=== PATIENT | female | born 1950 | race Caucasian/White ===

== ENCOUNTER → 2019-03-25 | Outpatient (CLI) | payer OTHER ==
[~2019-03-25] MED LIST: ARTIFICIAL TEA1 EAC1 OP; ATRIPLA TABLET1 EACH PO; BACLOFEN 10MG T10 MG PO; CARAFATE 1 GM TA1 G1 PO; CEPACOL SORE T1 EAC7 MM; DIGOXIN250 MCG PO; GLUCAGEN1 MG IM; GRALISE300 MG PO; KLOR-CON 1010 MEQ PO; LASIX 40 MG TAB40 M2 PO; LIPITOR 20 MG T20 M1 PO; LOPERAMIDE 2 MG2 M1 PO; MIDODRINE HCL 55 M1 PO; NOVOLIN 70100 UNIT/5 IJ; PEPCID20 MG PO; PIOGLITAZONE15 MG; PRADAXA150 MG PO; ROBITUSSIN DM118 ML PO; SENNA8.6 MG PO; TYLENOL325 MG PO; WAL-ZYR10 M1 PO; ZANTAC 150MG T150 MG PO
--- NOTE | 2019-03-25 16:08 | 2DMMODE ---
[facility] [address] [place] [address] 2 D/M-MODE ECHOCARDIOGRAM Name: DUKE BROWN Room #: REG CL Brayan#: [id number] Admission: 03/25/19 Attend Phys: Manuel Ferguson Discharge: Date of : 48 Report #: [id number] THIS REPORT FOR: //name// APPROVED REPORT Study performed: 03/25/2019 15:04:30 EXAM: Comprehensive 2D, Doppler, and color-flow Echocardiogram Patient Location: Out-Patient Room #: Echo lab 2 Status: routine BSA: 1.93 HR: 83 bpm Rhythm: Atrial Fibrillation Other Information Study Quality: Good Indications Pre-Op Atrial Fibrillation Hypertension/HDD 2D Dimensions IVSd: 12.47 (7-11mm) LVOT Diam: 18.70 (18-24mm) LVDd: 31.92 mm PWd: 12.13 (7-11mm) Ascending Ao: 28.30 (22-36mm) LVDs: 22.10 (25-40mm) Aortic Root: 28.02 mm IVC: 15.00 mm Volumes Left Atrial Volume (Systole) Single Plane 4CH: 44.64 mL Single Plane 2CH: 58.80 mL LA ESV Index: 30.00 mL/m2 Aortic Valve LVOT Max P.89 mmHg LVOT Max V: 0.99 m/s Pulmonary Valve PV Peak Shakeel.: 1.69 m/s PV Peak Gr.: 11.42 mmHg Tricuspid Valve TR Peak Shakeel.: 2.52 m/s [facility] [address] [place] [address] 2 D/M-MODE ECHOCARDIOGRAM Name: DUKE BROWN Room #: REG ADONIS Brayan#: [id number] Admission: 03/25/19 Attend Phys: Manuel Ferguson Discharge: Date of : 48 Report #: [id number] TR Peak Gr.: 25.47 mmHg PA Pressure: 30.00 mmHg Left Ventricle The left ventricle is normal size. There is normal LV segmental wall motion. Mild concentric left ventricular hypertrophy. The left ventricular systolic function is normal. The left ventricular ejection fraction is within the normal range. LVEF is 60%. This study is not technically sufficient to allow evaluation of the LV diastolic function due to atrial fibrillation. Right Ventricle The right ventricle is normal size. The right ventricular systolic function is normal. Atria The left atrium size is normal. Right atrium is at the upper limits of normal. Aortic Valve The aortic valve is normal in structure. Aortic valve is calcified. Trace to mild aortic regurgitation. There is no aortic valvular stenosis. Mitral Valve The mitral valve is normal in structure. There is no mitral valve regurgitation noted. No evidence of mitral valve stenosis. Tricuspid Valve The tricuspid valve is normal in structure. There is trace tricuspid regurgitation. The right atrial pressure is estimated at mmHg. There is mild pulmonary hypertension. Pulmonic Valve The pulmonary valve is normal in structure. Trace pulmonic regurgitation. Great Vessels The aortic root is normal in size. IVC is normal in size and collapses >50% with inspiration. Pericardium There is no pericardial effusion. <Conclusion> The left ventricle is normal size. [facility] [address] [place] [address] 2 D/M-MODE ECHOCARDIOGRAM Name: DUKE BROWN Room #: REG CL [facility].#: [id number] Admission: 03/25/19 Attend Phys: Manuel Ferguson Discharge: Date of : 48 Report #: [id number] LVEF is 60%. The aortic valve is normal in structure. Aortic valve is calcified. Trace to mild aortic regurgitation. The mitral valve is normal in structure. The tricuspid valve is normal in structure. There is trace tricuspid regurgitation. The right atrial pressure is estimated at mmHg. There is mild pulmonary hypertension. There is no pericardial effusion. <ELECTRONICALLY SIGNED> By: Manuel Flaherty MD 03/25/19 1608 1608 07 Manuel Flaherty MD /INF
== END ==
LOC: CV 14:52
DX: Z01.810 Encounter for preprocedural cardiovascular examination (principal); I35.1 Nonrheumatic aortic (valve) insufficiency; I48.91 Unspecified atrial fibrillation; I27.20 Pulmonary hypertension, unspecified

== ENCOUNTER 2019-08-03 16:24 | Emergency (ER) | payer OTHER ==
[~2019-08-03] VITALS: Ht 162.6 cm; Wt 102.1 kg
[~2019-08-03 16:24] MED LIST changes: +DORYX MPC120 MG PO
[2019-08-03 16:27] VITALS: BP 157/82
[2019-08-03] MEDS ORDERED: FARXIGA5 MG PO (18:55)
[2019-08-03] MEDS ORDERED: VITAMIN D32000 UNI2 PO (18:56)
[2019-08-03] MEDS ORDERED: BACLOFEN 10MG T10 MG PO (18:57)
[2019-08-03] MEDS ORDERED: ATRIPLA TABLET1 EACH PO (18:58)
[2019-08-03] MEDS ORDERED: TYLENOL WITH CO1 TA1 PO (19:00)
== END 2019-08-03 21:19 | disposition home or self-care (01) ==
LOC: ER 16:24
DX: E11.40 Type 2 diabetes mellitus with diabetic neuropathy, unspecified (principal); R60.0 Localized edema; B20 Human immunodeficiency virus [HIV] disease; Z90.49 Acquired absence of other specified parts of digestive tract

== ENCOUNTER 2019-08-13 15:01 | Inpatient (IN) | payer OTHER ==
[~2019-08-13] VITALS: Ht 165.1 cm; Wt 56.3 kg
--- NOTE | ~2019-08-13 | HC ---
[facility] [place] [address] CONSULTATION Name: DUKE BROWN Room #: 355-P ADM IN M.R.#: [id number] Admission: 08/13/19 Attend Phys: Linda Mancilla MD Discharge: Date of : 48 Report #: [id number] THIS REPORT FOR: cc: Linda Mancilla MD,Gerber Porras MD, MD ~ CC: Linda Mancilla DATE OF SERVICE: 08/14/2019 WOUND CARE CONSULTATION PERSONAL PHYSICIAN: Dr. Mancilla. CHIEF COMPLAINT: Sacral ulcer. HISTORY OF PRESENT ILLNESS: This is a 68-year-old white female who was admitted from a senior care for evaluation of hypotension and possible sepsis. The patient has now been admitted for IV antibiotics. We were asked to evaluate the patient for a chronic ulcer on her right parasacral region. The patient himself is extremely demented and unable to give any history. According to the records, the patient's mentation is at her baseline. It is unclear whether the patient ever had any other ulcerations or how long this current ulceration has been present. There are no family members in the room at this time. PAST MEDICAL HISTORY: Per old records is significant for diabetes, previous DVTs and history of HIV. The patient has had a [place] filter placed as well. CURRENT MEDICATIONS: Multiple, I have reviewed the patient's medication list. DRUG ALLERGIES: None. SOCIAL HISTORY: The patient resides in a senior care facility. FAMILY HISTORY AND REVIEW OF SYSTEMS: Unobtainable because of the patient's mentation and dementia. PHYSICAL EXAMINATION: VITAL SIGNS: Temperature 36.9, pulse 94, respirations 20, BP 92/47. GENERAL: This is an awake, demented white female who is only oriented to person. HEENT: Normocephalic, atraumatic. Mucous membranes are dry. Pupils are round. Sclerae white. NECK: Supple, nontender. LUNGS: Clear. [facility] [address] [place] [address] [facility] Room #: 355-[facility] IN ..#: [id number] Admission: 08/13/19 Attend Phys: Linda Mancilla MD Discharge: Date of : 48 Report #: [id number] HEART: Regular. ABDOMEN: Obese, soft, nontender. EXTREMITIES: The patient moves all extremities without difficulty. Bilateral heels are intact. Distal pulses 1+. Evaluation of the right parasacral region reveals a dark eschar which is somewhat tender to palpation and somewhat fluctuant. Periwound is mildly erythematous and warm. No tunneling or undermining. No other associated signs of pressure ulcers are seen. NEUROLOGIC: Once again, the patient is demented. LABORATORY DATA: White count 10.0, hemoglobin 12.8, BUN 11, creatinine 0.6. Chest x-ray shows no acute abnormality. IMPRESSION: 1. Right parasacral unstageable decubitus ulcer present on admission. 2. Dementia. 3. Generalized debility. 4. Hypotension. PLAN: At this time, the patient will be placed on low air loss mattress and have her turned every [address] the patient in a heel protection given her multiple comorbidities and inactivity. We will consult General Surgery____ has been notified for surgical debridement of the parasacral ulceration. We will start the patient on Dakin's moist dressings twice daily to the area. We will check a prealbumin on this patient and attempt to maximize the patient's oral protein supplementation for healing. At this time, I do not think the patient is a candidate for physical or occupational therapy. We will continue all other current medications and continue to follow the patient. By: 162 20 Gerber Clancy MD /ayden
[~2019-08-13 15:01] MED LIST changes: +FARXIGA5 MG PO; +TYLENOL WITH CO1 TA1 PO; +VITAMIN D32000 UNI2 PO
[2019-08-13 15:02] VITALS: BP 92/45
[2019-08-13] MEDS ORDERED: FARXIGA5 MG PO (16:16)
[2019-08-13 16:19] LABS: ABSOLUTE NEUTROPHILS 6.9 thou/uL (1.4-8.2); BASOPHILS 0.8 % (0.0-2.0); EOSINOPHILS 3.6 % (0.0-3.0); HEMATOCRIT 40.1 % (37.0-47.0); HEMOGLOBIN 12.8 gm/dL (12.0-15.0); LYMPHOCYTES 17.4 % (24.0-44.0); MCH 29.8 pg (26.0-34.0); MCHC 31.8 g/dL (28.0-37.0); MCV 93.5 fL (80.0-100.0); PLATELET COUNT 387 thou/uL (150-400); POLYS 69.2 % (36.0-66.0); RBC 4.29 mil/uL (4.20-5.00); RDW 14.7 % (10.5-14.5)
[2019-08-13 16:20] LABS: URINE BILIRUBIN NEGATIVE (Negative); URINE BLOOD 3+ (Negative); URINE CLARITY SL CLOUDY; URINE COLOR YELLOW; URINE GLUCOSE-RANDOM* 2+ (Negative); URINE KETONES NEGATIVE (Negative); URINE NITRITE-REFLEX NEGATIVE (Negative); URINE PROTEIN (DIPSTICK) TRACE (Negative); URINE SPECIFIC GRAVITY 1.015 (1.005-1.035)
[2019-08-13] MEDS ORDERED: TYLENOL WITH CO1 TA1 PO (16:20)
[2019-08-13 16:23] LABS: URINE LEUKOCYTES-REFLEX 3+ (Negative)
[2019-08-13] MEDS ORDERED: NYSTATIN 100,0015 G1 TOP (16:25)
[2019-08-13 16:27] LABS: CALCIUM 9.7 mg/dL (8.5-10.1); CREATININE 0.6 mg/dL (0.6-1.0); MAGNESIUM 1.8 mg/dL (1.8-2.4); POTASSIUM 3.8 mmol/L (3.5-5.1)
[2019-08-13 16:32] LABS: BACTERIA-REFLEX 1-9 Few /HPF (None Seen); CASTS None Seen /LPF (None Seen); CRYSTALS None Seen /LPF (None Seen); SQUAMOUS 0-3 Few /LPF (0-3); URINE WBC-REFLEX >25 Many /HPF (0-5)
--- NOTE | 2019-08-13 16:32 | EKG ---
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
[2019-08-13 18:56] VITALS: BP 92/54
[2019-08-13 19:51] VITALS: BP 96/51
[2019-08-13 20:19] VITALS: BP 97/60
[2019-08-13 23:58] VITALS: BP 105/58
--- NOTE | 2019-08-14 01:43 | NUR ---
Admission history and assessments completed. Careplan initiated. Decubitus ulcer Left buttocks, photographed and documented. IVfluids infusing.
[2019-08-14 04:12] VITALS: BP 112/65
--- NOTE | 2019-08-14 06:20 | NUR ---
Falls pre admission. Known right arm fracture, patient refuses to wear immobilizer. Oxyir given for pain with some relief. Fall precautions in place.
[2019-08-14 08:00] VITALS: BP 106/69
--- NOTE | 2019-08-14 08:14 | NUR ---
0700 received report from Natalie morris cares on this patient.
[2019-08-14 13:30] VITALS: BP 121/71
[2019-08-14 15:53] VITALS: BP 92/47
--- NOTE | 2019-08-14 16:25 | NUR ---
INITIAL ASSESSMENT: SW reviewed chart and spoke with nursing and attending physician. Pt was admitted from [facility] due to UTI/Hypotension. Pt wih hx of HIV and dementia. Pt with postive blood cultures. No weekend discharge planned. SW to update facility on Saturday. BECKY is following to assist as needed with discharge planning.
[2019-08-14 19:19] VITALS: BP 77/50
--- NOTE | 2019-08-14 19:32 | NUR ---
Patient is able to communicate very well if you give her the time. Her speech is garbled but she can communicate her needs. She holds her rt arm close to her chest d/t previous fx. She does not want you any where near the rt side of her body. 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 The topete she arrived with from the outside facility had to be replaced today due to leaking. Her HR increases to 120's 150's with movement d/t the anxiety of moving and pain it returns to baseline shortly after movement is complete. Breathing and relaxation techniques gone over with the patient when she is moved. She was educated on the need for being turned in bed.
[2019-08-14 22:31] VITALS: BP 108/58
[2019-08-15 03:49] VITALS: BP 96/61
--- NOTE | 2019-08-15 03:55 | NUR ---
ASSUMED CARE OF PATIENT AT 1900. VSS, AFEBRILE. DIFFICULT TO UNDERSTAND, BUT IS ABLE TO COMMUNICATE. APPEARS TO BE VERY ANXIOUS ABOUT RIGHT ARM. REFUSES TURNS. EDUCATED ABOUT PRESSURE ULCERS ALREADY ON BUTTOCKS. SURGERY IN TO SEE PATIENT. PLANS FOR POSSIBLE DEBRIDEMENT SATURDAY. WILL CONTINUE TO MONITOR.
[2019-08-15 07:07] VITALS: BP 102/64
--- NOTE | 2019-08-15 16:27 | NUR ---
ASSUMED CARE AT 0700, PT ALERT AND ORIENTED X3. PT COMPLAINS OF GENERALIZED PAIN ESPECIALLY ON THE RIGHT. RIGHT ARM SEEMS DISLOCATED, ORTHO AWARE AND ORDER SHOULDER IMMOLIZER, PT REFUSE IMMOBILIZER. PT TUEN Q2, CALL LIGHT IN REACH AND BED AT LOWEST LEVL WITH ALARM ON. WILL CONTINUE TO MONITOR
[2019-08-15 17:00] VITALS: BP 111/62
[2019-08-15 19:14] VITALS: BP 93/58
[2019-08-16 04:00] VITALS: BP 117/77
[2019-08-16 06:56] VITALS: BP 88/51
[2019-08-16 15:42] VITALS: BP 100/58
--- NOTE | 2019-08-16 17:31 | NUR ---
patient has been more tearful today and has not talked as much as she has the prior day. She just shakes her head and looks away. She had a new IV placed in her rt hand this am by Tierney GILES. Dressing change to her coccyx was also done by Tierney GILES. She was incontinent of a very lg amount of BM x1 today. Requested pain medication every 4 hours and once when family was here wanted something for pain in between the 4 hrs. She has a sling to the rt arm I have had to redo the velcro strap around the neck twice today she kept saying "it hurts" I applied a wash rag between the strap and her neck for comfort. At this time there was no sign of skin irritation. She did not want to feed herself supper and was very withdrawn at supper although she ate well just wanted to be fed.
[2019-08-16 20:10] VITALS: BP 107/62
[2019-08-17 04:00] VITALS: BP 101/60
[2019-08-17 05:30] LABS: HEMOGLOBIN 11.3 gm/dL (12.0-15.0); MCH 29.3 pg (26.0-34.0); MCHC 31.4 g/dL (28.0-37.0); MCV 93.4 fL (80.0-100.0); RBC 3.86 mil/uL (4.20-5.00); RDW 14.6 % (10.5-14.5); WBC 8.7 thou/uL (4.0-11.0)
[2019-08-17 06:02] LABS: CREATININE 0.5 mg/dL (0.6-1.0); POTASSIUM 3.8 mmol/L (3.5-5.1)
--- NOTE | 2019-08-17 06:14 | NUR ---
PT MAKING POOR PROGRESS TOWARDS GOALS. NOTED HX OF EXPRESSIVE APHASIA R/T. PT HAS NOT SPOKEN ANY WORDS TO THIS RN NOR THE DISK OPERATOR. DID NOD HER HEAD UP/DOWN AND LEFT/RIGHT FOR YES OR NO. THOUGH PT ONLY RESPONDED TO BASIC QUESTIONS SUCH "ARE YOU THIRSTY" OR "ARE YOU COLD?"
--- NOTE | 2019-08-17 07:44 | NUR ---
assumed care at 0700, pt and oriented, follows commands. seems more withdrawnn than usual. Assessment completed. pt educated on going to get debridement of right buttocks wound today. complains of right arm and leg pain. Has a sling on the right arm. pt denies any needs at the moment, call light in reach and bed at lowest level. Will continue to monitor.
[2019-08-17 07:56] VITALS: BP 107/70
--- NOTE | 2019-08-17 12:02 | NUR ---
1050 PT TAKEN DOWN TO OR
--- NOTE | 2019-08-17 14:31 | NUR ---
DISCHARGE PLANNING. PATIENT ADMITTED FROM [facility]. PLAN IS FOR PATIENT TO RETURN TO [facility] ONCE MEDICALLY READY. PATIENT CLINICAL INFORMATION FAXED TO [facility], VERIFIED RECEIVED. FOLLOWING.
--- NOTE | 2019-08-17 15:12 | NUR ---
BECKY reviewed chart and spoke with nursing. Pt to have surgical debridement of wounds today. financial planner to fax clinical updates to [facility] for review. BECKY is following to assist as needed with discharge planning.
[2019-08-17 16:25] VITALS: BP 94/54
--- NOTE | 2019-08-17 17:11 | NUR ---
1540 pt back from surgery. right buttocks debridement done, dressing, intact, clean and dry. pt alert and oriented X3. DENIES ANY PAIN. Call light and table in reach. bed alarm on
[2019-08-17 19:51] VITALS: BP 99/50
[2019-08-18 03:01] VITALS: BP 94/56
[2019-08-18 07:52] VITALS: BP 115/56
--- NOTE | 2019-08-18 07:58 | NUR ---
0705 Report received from Vipul GILES patient laying quietly in bed she has no complaints or concerns at this time. Call light within reach.
--- NOTE | 2019-08-18 08:02 | NUR ---
PT MAKING POOR PROGRESS TOWARDS GOALS. NO VERBAL RESPONSE FROM PT BUT SHE DOES MAKE EYE CONTACT AND TURN TOWARDS THE PERSON SPEAKING. DOES APPEAR TO TO HER HEAD UP/DOWN (YES) AND LEFT/RIGHT (NO) APPROPRIATELY. ABLE TO TAKE MEDS IN PUDDING WITHOUT OBSERVABLE DIFFICULTY.
[2019-08-18] MEDS ORDERED: AUGMENTIN 500-1 EACH PO (10:20)
[2019-08-18] MEDS ORDERED: MOBIC7.5 M1 PO (10:21)
[2019-08-18] MEDS ORDERED: OXYCODONE HCL 55 MG PO (10:22)
--- NOTE | 2019-08-18 14:26 | NUR ---
Report called to Andreia LANZA at [facility].
--- NOTE | 2019-08-18 15:43 | NUR ---
DISCHARGE NOTE: SW reviewed chart and spoke with nursing. Discharge orders/summary finalized today for pt to return to [facility]. community planner coordinated and notified pt's family. No additional SW needs identified at this time, but is available to assist should needs arise.
[2019-08-18 16:13] VITALS: BP 89/57
[2019-08-18 16:15] VITALS: BP 79/47
--- NOTE | 2019-08-19 17:07 | PATH ---
[facility] [address] [place] [address] PATHOLOGY RPT PROCEDURE Name: DUKE BROWN Room #: 355-P DIS IN M.R.#: [id number] Admission: 08/13/19 Date of : 48 Discharge: 08/18/19 Report #: [id number] Path Case #: [id number] L[facility] Accession Number: [id number] . 01 Material submitted: . sacrum - LEFT SACRAL SKIN AND TISSUE. Modifiers: left . 01 Clinical history: . Left sacral decubitus ulcer . 02 Diagnosis: Left sacral skin and tissue, debridement: - Skin and subcutaneous tissue showing ulceration along with marked acute inflammation, gangrenous necrosis as well as fibrinoid degeneration, consistent with debridement tissue. . (IUV:mml; 08/19/2019) QLM 08/19/2019 1311 Local . 02 Electronically signed: . Naomi Gonzalez MD, Pathologist NPI- [id number] . 01 Gross description: . The specimen is received in formalin, labeled "Duke Brown, left sacral skin and soft tissue" and consists of an ulcerated pink-sal segment of skin measuring 6.3 x 5.1 cm excised to a depth of 4.3 cm. Design Engineering Manager sections are submitted in A1. (SDY; 08/18/2019) SYU/SYU 08/18/2019 1618 Local . 02 Pathologist provided ICD-10: L89.159 . 02 CPT . 744772 Specimen Comment: A courtesy copy of this report has been sent to [phone], [phone] Specimen Comment: [id number] Specimen Comment: Report sent to / DR HARPER Performed at: 01 [place] [id number] [address] [id number] MD Aldo Brush MD Phone: [phone] Performed at: [address] [id number] [address] [address] PATHOLOGY RPT PROCEDURE Name: DUKE BROWN Room #: 355-P DIS IN M.R.#: [id number] Admission: 08/13/19 Date of : 48 Discharge: 08/18/19 Report #: [id number] Path Case #: [id number] MD Naomi Gonzalez MD Phone: [phone]
== END 2019-08-18 17:00 | DRG 853 ==
LOC: ER 15:01 → 3W 17:47 → EROBS 17:47 → 3W 19:50
PROVIDERS: Emergency Medicine; Internal Medicine; ADMIT Internal Medicine
PROC: 0QB10ZZ Excision of Sacrum, Open Approach (ICD-10-PCS; principal; 2019-08-17)
DX: A41.9 Sepsis, unspecified organism (principal); G92 Toxic encephalopathy; S42.291A Other displaced fracture of upper end of right humerus, initial encounter for closed fracture; N39.0 Urinary tract infection, site not specified; I69.351 Hemiplegia and hemiparesis following cerebral infarction affecting right dominant side; I48.21 Permanent atrial fibrillation; L89.150 Pressure ulcer of sacral region, unstageable; E66.9 Obesity, unspecified; F03.90 Unspecified dementia, unspecified severity, without behavioral disturbance, psychotic disturbance, mood disturbance, and anxiety; E11.40 Type 2 diabetes mellitus with diabetic neuropathy, unspecified; I25.10 Atherosclerotic heart disease of native coronary artery without angina pectoris; E78.5 Hyperlipidemia, unspecified; I10 Essential (primary) hypertension; F32.9 Major depressive disorder, single episode, unspecified; K21.9 Gastro-esophageal reflux disease without esophagitis; L29.9 Pruritus, unspecified; X58.XXXA Exposure to other specified factors, initial encounter; Y93.89 Activity, other specified; Y92.89 Other specified places as the place of occurrence of the external cause; Z86.718 Personal history of other venous thrombosis and embolism; Z79.01 Long term (current) use of anticoagulants; Z68.20 Body mass index [BMI] 20.0-20.9, adult; Y99.8 Other external cause status; Z90.49 Acquired absence of other specified parts of digestive tract; Z79.899 Other long term (current) drug therapy
CPT/HCPCS: 10879; 50010; 50101; 50386; 50403; 57119; 57120; 57192; 62110; 62900; 70005

== ENCOUNTER 2019-08-23 17:32 | Inpatient (IN) | payer OTHER ==
[~2019-08-23] VITALS: Ht 165.1 cm; Wt 83.2 kg
--- NOTE | ~2019-08-23 | EMS ---
[place] [id number] EMS Patient Care Report Name: DUKE BROWN Room #: 214-P ADM IN M.R.#: [id number] Admission: 08/23/19 Attend Phys: Linda Mancilla MD Discharge: Date of : 48 Report #: [id number] THIS REPORT FOR: //name// Report Transmitted: 08/23/2019 17:18 EMS Care Summary [place], [place]/[facility] Incident [id number] @ 08/23/2019 17:04 Incident Location [address] Patient DUKE BROWN Female, 68 Years 1950 Patient Address [address] [place] [address] Patient History Other,Urinary Tract Infection (UTI),Atrial Fibrillation,Neuropathy,Sepsis,Hypotension,Type 2 Diabetes, Patient Allergies No known allergies, Patient Medications Atorvastatin, Loperamide, Benztropine, Famotidine, Digoxin, Midodrine, Gabapentin, Acetaminophen, Insulin, Cholecalciferol, Glucagon, Meloxicam, Dextromethorphan, Baclofen, Guaifenesin, Hydrocodone, Pioglitazone Hydrochloride, Chief Complaint Altered Mental Status Disposition Transported No Lights/[place] Reason [place] [address] EMS Patient Care Report Name: DUKE BROWN Room #: 214-P ADM IN Brayan#: [id number] Admission: 08/23/19 Attend Phys: Linda Mancilla MD Discharge: Date of : 48 Report #: [id number] Dispatched to residential with 68 year old female whose family was complaining of altered mental status. Upon arrival, patient was alert and oriented x2 and responding appropriately. Family stated patient was difficult to arouse and they felt like she wasn't acting like her normal self. Nurse stated patient was acting normally and family attempted to wake her up shortly after falling asleep. Patient complained of pain in her right arm from a previous humeral fracture. Patient was transferred, secured onto cot, and loaded into the ambulance. An ALS assessment was performed and vitals were monitored. Patient had right sided paralysis and some aphasia from a previous stroke. Patient also had a history of diabetes and sugar was 121. Patient's blood pressures were soft, but nurse stated the low pressure was normal for her and she was on medication to increase pressure. Patient stated she only had pain in her shoulder and chronic knee pain. Patient was reassessed and vitals were monitored en route to [place]. Upon arrival, patient was taken in on stretcher, moved to hospital bed, bed rails were raised, and patient care was transferred to the receiving nurse. Initial Vitals @17:15P: 96,R: 14,BP: 74/59,GCS: 15,SpO2: 97,Revised Trauma: 10, @17:09P: 92,R: 12,BP: 89/60,Pain: 6/10,GCS: 15,Glucose: 121,CO: 0,SpO2: 96,Revised Trauma: 11,DE Suspected: false Assessments @17:09MENTAL:Event Oriented,Person Oriented,SKIN:HEENT:Neck/Airway: Other,Head/Face: No Abnormalities,LUNG SOUNDS:General: No Abnormalities,ABDOMEN:General: No Abnormalities,PELVIS//GI:Pelvis GUOther,EXTREMITIES:Right Leg: Paralysis,Right Arm: Other,Right Arm: Paralysis,Capillary Refill: Left Upper: < 2 Sec,Left Arm: No Abnormalities,Left Leg: No Abnormalities,PULSE:Radial: 2+ Normal,NEURO:Weakness Right-Sided,Other,@17:19MENTAL:Person Oriented,Event Oriented,SKIN:No Abnormalities,HEENT:Head/Face: No Abnormalities,Eyes: No Abnormalities,LUNG SOUNDS:ABDOMEN:PELVIS//GI:EXTREMITIES:PULSE:NEURO: Impression Altered Mental Status Procedures @17:09ALS AssessmentResponse: UnchangedSucceeded Timeline 17:02,Call Received 17:02,Dispatch Notified 17:04,Dispatched 17:04,En Route 17:08,On Scene 17:08,At Patient [address] [place] [address] EMS [facility] Care [facility] Room #: 214-P ADM IN M.R.#: [id number] Admission: 08/23/19 Attend Phys: Linda Mancilla MD Discharge: Date of : 48 Report #: [id number] 17:09,ALS Assessment,Response: UnchangedSucceeded, 17:09,BP: 89/60 M,PULSE: 92,RR: 12 R,SPO2: 96 Ox,ETCO2: ,B,PAIN: 6,GCS: 15, 17:15,BP: 74/59 M,PULSE: 96,RR: 14 R,SPO2: 97 Ox,ETCO2: ,BG: ,PAIN: ,GCS: 15, 17:17,Depart Scene 17:28,At Destination 17:59,Call Closed Disclaimer v1.1 Copyright 2020 [employer] This EMS Care Summary contains data elements from the applicable legal record (which may be displayed differently). It is designed to provide pertinent information for the following purposes: continuity of care, clinical quality, and state data reporting. The complete legal record is available to ED staff and administrators of the receiving hospital in [employer]'s Patient Tracker. All data is provided "as is."
[~2019-08-23 17:32] MED LIST changes: +AUGMENTIN 500-1 EACH PO; +MOBIC7.5 M1 PO; -NOVOLIN 70100 UNIT/5 IJ; +NOVOLIN 70100 UNIT/5 SUBQ; +NYSTATIN 100,0015 G1 TOP; +OXYCODONE HCL 55 MG PO
[2019-08-23 18:07] LABS: ABSOLUTE NEUTROPHILS 7.4 thou/uL (1.4-8.2); BASOPHILS 0.8 % (0.0-2.0); EOSINOPHILS 3.1 % (0.0-3.0); HEMATOCRIT 38.2 % (37.0-47.0); HEMOGLOBIN 12.3 gm/dL (12.0-15.0); LYMPHOCYTES 14.2 % (24.0-44.0); MCH 29.8 pg (26.0-34.0); MCHC 32.1 g/dL (28.0-37.0); MCV 92.9 fL (80.0-100.0); MONOCYTES 7.8 % (1.0-8.0); PLATELET COUNT 504 thou/uL (150-400); POLYS 74.1 % (36.0-66.0); RBC 4.12 mil/uL (4.20-5.00); RDW 14.6 % (10.5-14.5); WBC 9.9 thou/uL (4.0-11.0)
[2019-08-23 18:11] VITALS: BP 101/85
[2019-08-23 18:19] LABS: ANION GAP 10 mmol/L (7-16); BUN 16 mg/dL (7-18); CALCIUM 10.2 mg/dL (8.5-10.1); CHLORIDE 104 mmol/L (98-107); CO2 28 mmol/L (21-32); CREATININE 0.5 mg/dL (0.6-1.0); GLUCOSE 114 mg/dL (74-106); POTASSIUM 3.4 mmol/L (3.5-5.1); SODIUM 142 mmol/L (136-145)
[2019-08-23 18:27] LABS: ALBUMIN 2.5 g/dL (3.4-5.0); DIRECT BILIRUBIN < 0.1 mg/dL (<0.1-0.2); SGOT 56 U/L (15-37); SGPT 43 U/L (30-65); TOTAL BILIRUBIN 0.3 mg/dL (<0.1-1.0); TOTAL PROTEIN 7.3 g/dL (6.4-8.2); TROPONIN-I 0.56 ng/mL (<0.06)
[2019-08-23] MEDS ORDERED: DULCOLAX STOOL100 M1 PO (19:14)
[2019-08-23 19:16] LABS: URINE BILIRUBIN NEGATIVE (Negative); URINE BLOOD 3+ (Negative); URINE CLARITY CLEAR; URINE COLOR YELLOW; URINE GLUCOSE-RANDOM* 1+ (Negative); URINE KETONES 1+ (Negative); URINE NITRITE-REFLEX NEGATIVE (Negative); URINE PROTEIN (DIPSTICK) 1+ (Negative); URINE SPECIFIC GRAVITY 1.025 (1.005-1.035); URINE UROBILINOGEN 0.2 E.U./dl (0.2-1.0)
[2019-08-23 19:17] LABS: URINE LEUKOCYTES-REFLEX 1+ (Negative)
[2019-08-23] MEDS ORDERED: ACID CONTROLLER20 MG PO (19:18)
[2019-08-23] MEDS ORDERED: VITAMIN C500 M1 PO (19:19)
[2019-08-23] MEDS ORDERED: NYSTATIN1 EAC5 TOP (19:22)
[2019-08-23 19:23] LABS: SQUAMOUS 0-3 Few /LPF (0-3); YEAST-REFLEX Present (None Seen)
[2019-08-23] MEDS ORDERED: BACITRACIN ZIN1 EAC1 TOP (19:23)
[2019-08-23 19:24] LABS: BACTERIA-REFLEX 1-9 Few /HPF (None Seen); CASTS None Seen /LPF (None Seen); CRYSTALS None Seen /LPF (None Seen); URINE WBC-REFLEX 6-15 Few /HPF (0-5)
[2019-08-23] MEDS ORDERED: DESITIN57 GM TOP (19:24)
[2019-08-23 22:10] VITALS: BP 101/47
[2019-08-23 22:36] VITALS: BP 82/49
[2019-08-23 23:53] VITALS: BP 75/46
[2019-08-24 04:45] VITALS: BP 94/68
[2019-08-24 07:30] VITALS: BP 88/64
--- NOTE | 2019-08-24 07:31 | NUR ---
PATIENT ARRIVED ON UNIT AROUND 2250. PT ON ROOM AIR. PT HAS EXPRESSIVE APHASIA AND ABLE TO ANSWER SIMPLE QUESTIONS WITH ONE WORD. PT IS ALERT TO SELF AND WILL FOLLOW DIRECTIONS. PT WINCES IN PAIN WHEN RIGHT SIDE IS TOUCHED. PT HAS RODRIGUEZ FOR INCONTINENCE. PT HAS LARGE OPEN WOUND ON COCCYX THAT HAS BEEN PHOTOGRAPHED AND CHARTED. SPOKE WITH DR HARPER AND RECEIVED ORDERS FOR PRN PAIN MEDICATION. STATED HE WOULD HANDLE OTHER MEDICATIONS WHEN HE ARRIVED. PT RESTED THRU NIGHT WITH MINIMAL INTERRUPTIONS. WILL CONTINUE TO MONITOR THRU NIGHT.
--- NOTE | 2019-08-24 10:45 | NUR ---
Assess due to notification of pressure ulcer to coccyx. Pt newly admitted with AMS, afib, from nursing facility. Hx HIV, DM, CVA with expressive aphasia, anemia. Wt up 13 lb from mid-jul admit. retirement diet is regular with high protein snacks. Last recent admit was trying different oral supplements-will start with ensure enslive once a diet order is placed. Low nutrition risk
[2019-08-24 11:30] VITALS: BP 89/50
--- NOTE | 2019-08-24 15:50 | 2DMMODE ---
[facility] [place] [address] 2 D/M-MODE ECHOCARDIOGRAM Name: DUKE BROWN Room #: 214-P ADM IN M.R.#: [id number] Admission: 08/23/19 Attend Phys: Linda Mancilla MD Discharge: Date of : 48 Report #: [id number] THIS REPORT FOR: cc: Linda Mancilla MD, Ramilo MD Lammoglia, Francisco J. MD ~ APPROVED REPORT Study performed: 08/24/2019 14:08:52 EXAM: Comprehensive 2D, Doppler, and color-flow Echocardiogram Patient Location: Bedside Room #: 214 Status: routine BSA: 1.73 HR: 115 bpm BP: 89/50 mmHg Rhythm: Atrial Fibrillation Other Information Study Quality: Technically Difficult Technically limited study due to inability to position patient. Indications Atrial Fibrillation 2D Dimensions RVDd: 28.62 mm IVSd: 11.12 (7-11mm) LVOT Diam: 19.19 (18-24mm) LVDd: 37.91 mm PWd: 9.73 (7-11mm) Ascending Ao: 24.53 (22-36mm) LVDs: 24.94 (25-40mm) Aortic Root: 28.71 mm IVC: 18.00 mm Volumes Left Atrial Volume (Systole) Single Plane 4CH: 53.22 mL Single Plane 2CH: 20.34 mL LA ESV Index: 21.00 mL/m2 Aortic Valve AoV Peak Shakeel.: 1.70 m/s AO Peak Gr.: 11.64 mmHg LVOT Max P.45 mmHg LVOT Max V: 1.54 m/s [facility] [address] [place] [address] 2 D/M-MODE ECHOCARDIOGRAM Name: DUKE BROWN Room #: 214-P ADM IN .R.#: [id number] Admission: 08/23/19 Attend Phys: Linda Mancilla MD Discharge: Date of : 48 Report #: [id number] Vmax: 2.61 cm2 Pulmonary Valve PV Peak Shakeel.: 2.19 m/s PV Peak Gr.: 19.18 mmHg Tricuspid Valve TR Peak Shakeel.: 2.39 m/s TR Peak Gr.: 22.90 mmHg PA Pressure: 28.00 mmHg Left Ventricle The left ventricle is normal size. Mild concentric left ventricular hypertrophy. Left ventricular systolic function is hyperdynamic with israel increased LV gradient. Peak gradient 47 mmHg. LVEF is >70%. This study is not technically sufficient to allow evaluation of the LV diastolic function due to atrial fibrillation. Right Ventricle The right ventricle is normal size. The right ventricular systolic function is normal. Atria The left atrium size is normal. The right atrium size is normal. Aortic Valve The aortic valve is normal in structure. The Aortic valve is sclerotic. Mild aortic regurgitation. There is no aortic valvular stenosis. Mitral Valve The mitral valve is normal in structure. With moderate mitral annular calcification principally at the base of the posterior leaflet Trace mitral regurgitation. No evidence of mitral valve stenosis. Tricuspid Valve The tricuspid valve is normal in structure. There is trace tricuspid regurgitation. Estimated PAP 28 mmHg. There is no pulmonary hypertension. Pulmonic Valve The pulmonary valve is normal in structure. There is no pulmonic valvular regurgitation. Great Vessels [facility] [address] [place] [address] 2 D/M-MODE ECHOCARDIOGRAM Name: DUKE BROWN Room #: 214-P [facility] IN M.R.#: [id number] Admission: 08/23/19 Attend Phys: Linda Mancilla MD Discharge: Date of : 48 Report #: [id number] The aortic root is normal in size. IVC is normal in size and collapses >50% with inspiration. Pericardium There is no pericardial effusion. <Conclusion> The left ventricle is normal size. LVEF is >70%. The aortic valve is normal in structure. The Aortic valve is sclerotic. Mild aortic regurgitation. The mitral valve is normal in structure. With moderate mitral annular calcification principally at the base of the posterior leaflet Trace mitral regurgitation. The tricuspid valve is normal in structure. There is trace tricuspid regurgitation. Estimated PAP 28 mmHg. There is no pulmonary hypertension. The pulmonary valve is normal in structure. There is no pericardial effusion. <ELECTRONICALLY SIGNED> By: Manuel Flaherty MD 08/24/19 1548 1548 1548 Manuel Flaherty MD /INF
--- NOTE | 2019-08-24 15:51 | NUR ---
COMPLETELY APHASIC. VISITS, STATES SHE HAS BEEN IN [facility] FOR 17 YEARS. SIGNIFICANT COCCYX WOUND PIC ON CHART NOTED; NEW DRESSING CDI. AFIB PER TELE. TURNED Q2H. RODRIGUEZ TO DD. CONTACT ISOLATION STARTED D/T ESBL PROTEUS IN WOUND PER TISHA CA. MEDICATED FOR PAIN ORDERED, WINCES WHEN REPOSITIONED. WILL CONTINUE TO FOLLOW CLOSELY.
[2019-08-24 16:15] VITALS: BP 89/69
[2019-08-24 19:57] VITALS: BP 87/62
[2019-08-25 04:07] VITALS: BP 100/57
--- NOTE | 2019-08-25 05:33 | NUR ---
ASSUMED PT CARE AROUND 1915. PT WAS RESTING IN BED. PT IS NONVERBAL HOWEVER WILL ANSWER SIMPLE YES OR NO QUESTIONS. PT REFUSED TO TAKE MEDICATIONS AND WOULD NOT OPEN MOUTH TO DO SO. WHEN ASKED TO TAKE PILLS PT SHOOK HEAD NO, MOUTHED NO, AND HELD UP HAND IN REFUSAL. WOUND CARE WAS PROVIDED AND PT TOOK PAIN MEDICATION AFTERWARDS BUT WOULD REFUSED ALL OTHER MEDICATIONS. WILL CONTINUE TO MONITOR PER PLAN OF CARE.
[2019-08-25 08:15] VITALS: BP 71/48
[2019-08-25 09:07] LABS: CALCIUM 10.2 mg/dL (8.5-10.1); CREATININE 0.8 mg/dL (0.6-1.0); POTASSIUM 3.9 mmol/L (3.5-5.1)
--- NOTE | 2019-08-25 10:06 | NUR ---
Patient admits to [facility] from [facility] with AMS. Patient today with fever and consult for ID. Patient with recent dc return to [facility] Aug 18. Rn reports patient can answer only yes/no questions. Await spouse to arrive. Left message with [facility] to call casemgt. Cont to follow.
[2019-08-25 10:30] LABS: URINE BILIRUBIN 2+ (Negative); URINE BLOOD 2+ (Negative); URINE CLARITY CLEAR; URINE COLOR YELLOW; URINE GLUCOSE-RANDOM* 3+ (Negative); URINE KETONES 2+ (Negative); URINE LEUKOCYTES-REFLEX NEGATIVE (Negative); URINE NITRITE-REFLEX NEGATIVE (Negative); URINE PROTEIN (DIPSTICK) 3+ (Negative); URINE SPECIFIC GRAVITY 1.025 (1.005-1.035); URINE UROBILINOGEN 0.2 E.U./dl (0.2-1.0)
[2019-08-25 10:34] LABS: ICTOTEST (BILI CONFIRMATORY) Positive (Negative)
[2019-08-25 10:43] LABS: SQUAMOUS 0-3 Few /LPF (0-3)
[2019-08-25 10:44] LABS: CASTS None Seen /LPF (None Seen); URINE WBC-REFLEX 6-15 Few /HPF (0-5); YEAST-REFLEX Present (None Seen)
[2019-08-25 10:45] LABS: BACTERIA-REFLEX 1-9 Few /HPF (None Seen); CRYSTALS None Seen /LPF (None Seen); URINE RBC 3-10 Few /HPF (0-2)
[2019-08-25 11:13] VITALS: BP 67/40
--- NOTE | 2019-08-25 14:39 | NUR ---
Spoke with spouse he is concerned " very sick." reviewed IV antibiotics and fluids. Supportive listening and reviewed role of casemgt. plan return to [facility] once stable.
--- NOTE | 2019-08-25 16:34 | NUR ---
WOUND CARE F/U; ROUNDING WITH DR MENDIOLA. THE WOUND WAS SURGICALLY DEBRIDED. GOOD TISSUE QUALITY REMAINS. 20% NON VIABLE TISSUE REMAINS THROUGHT THE WOUND. NO S/S OF INFECTION NOTED. RECOMMENDATIONS; STATRT VAC THERAPY (SEE ORDERS) RN PRESENT
--- NOTE | 2019-08-25 16:53 | NUR ---
ASSUMED CARE 0700. ALERT TO SELF, EXPRESSIVE DYSPHAGIA CAN INDICATE YES/NO ANSWERS WITH HEAD KNODS, TREATING FEVER WITH PRN MEDICATIONS, DR WOODS ROUNDED WITH ORDERS FOR BOLUS FLUIDS X2,URINE OUTPUT INPROVING. WOUND CARE PLACE WOUND VAC THAT IS INTACT. RIGHT ARM SLING IN PLACE. Q-TURNS TOLERATED. CONTINUES ON IV-ANTIBIOTICS. POOR NUTRITIONAL INTAKE. ASSISTED WITH MORNING MEALS. PT DECLINED NOON MEAL. FLUIDS OFFERED WITH ROUNDS. TAKES ORAL MEDS CRUSHED C APPLE SAUCE. AFIB ON TELE WILL BECOME TACHY WITH WOUND CARE AND TURNS. UNABLE TO DEMONSTRATE CALL LIGHT - STAFF TO ANTICIPATE NEEDS. NO BM NOTED AT THIS TIME. CONTINUE TO MONITOR
[2019-08-25 20:10] VITALS: BP 75/52
[2019-08-26 00:15] VITALS: BP 80/57
[2019-08-26 04:45] VITALS: BP 100/66
--- NOTE | 2019-08-26 04:58 | NUR ---
ASSUMED PT CARE AROUND 1920. PT RESTING IN BED. PT IS EASILY AROUSED AND RESPONDS TO DIRECT YES/NO QUESTIONS. PT WAS NOTED TO HAVE FEVER AND GIVEN MEDICATION TO RELIEVE SYMPTOM. PT ANTIBIOTICS WERE CONTINUED PER MEDICATION AUG. PT ENCOURAGED TO DRINK WITH EVERY ROUND. PT REPOSITIONED TOLERABLE AND MANAGEABLE WITHOUT INTERFERING WITH TREATMENTS. PT REMAINED HYPOTENSIVE AND IS NOTED PRIOR HISTORY. WILL CONTINUE TO MAKE FREQUENT ROUNDS ON PATIENT.
[2019-08-26 05:53] LABS: ABSOLUTE NEUTROPHILS 7.5 thou/uL (1.4-8.2); BASOPHILS 0.5 % (0.0-2.0); HEMATOCRIT 34.3 % (37.0-47.0); HEMOGLOBIN 10.5 gm/dL (12.0-15.0); LYMPHOCYTES 12.2 % (24.0-44.0); MCH 29.1 pg (26.0-34.0); MCHC 30.7 g/dL (28.0-37.0); MCV 94.8 fL (80.0-100.0); MONOCYTES 9.2 % (1.0-8.0); POLYS 78.1 % (36.0-66.0); RBC 3.61 mil/uL (4.20-5.00); RDW 15.4 % (10.5-14.5); WBC 9.7 thou/uL (4.0-11.0)
[2019-08-26 05:59] LABS: PLATELET COUNT 332 thou/uL (150-400)
[2019-08-26 06:18] LABS: ALBUMIN 2.3 g/dL (3.4-5.0); CALCIUM 9.1 mg/dL (8.5-10.1); CREATININE 0.5 mg/dL (0.6-1.0); POTASSIUM 3.4 mmol/L (3.5-5.1); TOTAL BILIRUBIN 0.3 mg/dL (<0.1-1.0); TOTAL PROTEIN 6.4 g/dL (6.4-8.2)
[2019-08-26 08:05] VITALS: BP 95/64
[2019-08-26 11:15] VITALS: BP 75/57
[2019-08-26 16:06] VITALS: BP 75/51
--- NOTE | 2019-08-26 16:55 | NUR ---
FAXED CLINICAL UPDATE TO [facility] SPOKE WITH MELECIO IN ADM SHE RECEIVED UPDATE AND THAT THEY HAVE MOVED PT'S ROOM CLOSER TO THE DESK SO THEY CAN KEEP A CLOSER WATCH ON HER. DP TO FOLLOW.
--- NOTE | 2019-08-26 17:48 | NUR ---
ASSUMED CARE 0700. PT ALERT, ABLE TO VERBALIZE YES AND NO WITH HEAD KNODS. TEMP IMPROVING WITH PRN MEDS. 650 ML URINE/RODRIGUEZ. INCONTINENT BM WATERY BROWN. NUTRITIONAL INTAKE INPROVING- BEDSIDE FOR NOON AND DINNER MEALS. FLUIDS OFFERED WITH ROUNDING. COMPLAINT WITH MEDS CRUSHED IN APPLE SAUCE/PUDDING. TURN TOLERATED. WOUND VAC IN PLACE NO LEAKS. PROGRESSING TOWARDS GOALS.
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
[2019-08-26 19:31] VITALS: BP 84/53
[2019-08-27 00:15] VITALS: BP 85/47
[2019-08-27 04:45] VITALS: BP 81/58
--- NOTE | 2019-08-27 05:55 | NUR ---
PATIENTS CARES WERE ASSUMED AT SHIFT CHANGE. THE PATIENT WAS ASSESSED AND MEDS WERE PASSED. PATIENT IS BEDREST,HOWEVER SHE WAS TURNED LEFT TO RIGHT. FRESH LINEN WAS GIVEN AND PATIENT WAS REFRESHED. HOURLY ROUNDS WERE DONE. PATIENT REMAINED PAIN FREE AND COMFORTABLE THIS SHIFT. THE BED IS IN A LOW AND LOCKED POSITION
[2019-08-27 07:30] VITALS: BP 115/90; BP 126/58
--- NOTE | 2019-08-27 13:58 | NUR ---
FAXED REFERRAL TO [facility] SPOKE WITH JEREMY IN ADM HE RECEIVED REFERRAL ADN WILL REVIEW. DP TO FOLLOW.
--- NOTE | 2019-08-27 15:35 | NUR ---
ASSESSMENT CHARTED. PT ALERT AND ORIENTED. VSS. IV ABX GIVEN ORDERED. CONTACT ISOLATION MAINTAINED. APPETITE GOOD. CHANGED AND REPOSITIONED Q HRS AND NEEDED. WOUNDVAC INTACT. WILL CONTINUE TO MONITOR.
[2019-08-27 16:00] VITALS: BP 98/64
--- NOTE | 2019-08-27 16:53 | NUR ---
Case discussed with the care team and the attending. [facility] liason notified of referral and clinical reveiw faxed. They can likely accept the pt pending her dc timeframe. [facility]ana heller to visit with the pt and spouse tomorrow.
[2019-08-27 20:09] VITALS: BP 95/64
[2019-08-28 03:54] VITALS: BP 103/66
[2019-08-28 05:27] LABS: HEMATOCRIT 33.6 % (37.0-47.0); HEMOGLOBIN 10.5 gm/dL (12.0-15.0); MCH 29.3 pg (26.0-34.0); MCHC 31.3 g/dL (28.0-37.0); MCV 93.5 fL (80.0-100.0); RBC 3.59 mil/uL (4.20-5.00); WBC 7.5 thou/uL (4.0-11.0)
[2019-08-28 05:48] LABS: CALCIUM 8.6 mg/dL (8.5-10.1); CREATININE 0.4 mg/dL (0.6-1.0); POTASSIUM 3.2 mmol/L (3.5-5.1)
--- NOTE | 2019-08-28 07:55 | NUR ---
PATIENTS CARE WERE ASSUMED AT SHIFT CHANGE,PATIENT ASSESSED AND MED S WERE PASSED. PATIENT TO GO TO [facility] TODAY. ROUNDS WERE DONE.
[2019-08-28 08:00] VITALS: BP 101/66
--- NOTE | 2019-08-28 11:23 | NUR ---
[facility] updated this am and has reached out to pt's spouse and son to tour facility. They are hoping to tour later this afternoon. No weekend dc anticipated per the attending. Pt with surgical consult and fever this am. Will check with [facility] regarding antiviral meds as [facility] would need those provided to accept. Will follow.
[2019-08-28 11:48] VITALS: BP 82/50
--- NOTE | 2019-08-28 15:34 | EKG ---
[facility] [place] [address] ELECTROCARDIOGRAM REPORT Name: DUKE BROWN Room #: 214-P ADM IN M.R.#: [id number] Admission: 08/23/19 Attend Phys: Linda Mancilla MD Discharge: Date of : 48 Report #: [id number] THIS REPORT FOR: cc: Linda Mancilla MD,Linda Deleon,Pablo Crandall MD [facility] ~ THIS REPORT FOR: //name// [facility] ED Test Date: 2019-08-23 Test Time: 17:37:09 Pat Name: DUKE BROWN Department: Room: [facility] Gender: F Civil Clerk: SHANIKA : 1950 Requested By: Jose Arshad Order Number: [id number] MD: Pablo Deleon Measurements Intervals [place] Rate: 98 P: VT: QRS: 19 QRSD: 70 T: 221 QT: 331 QTc: 423 Interpretive Statements Atrial fibrillation Repol abnrm, severe global ischemia (LM/MVD) Compared to ECG 08/13/2019 15:16:42 No significant change was found Electronically Signed On 08-24-2019 8:04:35 RENEWABLE ENERGY TRADER by Pablo Deleon [email or web address] <ELECTRONICALLY SIGNED> By: Pablo Deleon MD, [facility] 08/24/19 0804 1737 1737 Pablo Deleon MD, [facility] /EPI
--- NOTE | 2019-08-28 15:34 | EKG ---
[facility] [place] [address] ELECTROCARDIOGRAM REPORT Name: DUKE BROWN Room #: 214-P ADM IN M.R.#: [id number] Admission: 08/23/19 Attend Phys: Linda Mancilla MD Discharge: Date of : 48 Report #: [id number] THIS REPORT FOR: cc: Linda Mancilla MD,Linda Deleon,Pablo Crandall MD [facility] ~ THIS REPORT FOR: //name// [facility] ED Test Date: 2019-08-23 Test Time: 18:59:14 Pat Name: DUKE BROWN Department: Room: [facility] Gender: F Fish Receiver: NO : 1950 Requested By: Ladan De La Fuente Order Number: [id number] MD: Pablo Deleon Measurements Intervals [place] Rate: 90 P: MN: QRS: 16 QRSD: 72 T: 233 QT: 328 QTc: 402 Interpretive Statements Atrial fibrillation Diffuse ST and T wave abnormality Compared to ECG 08/13/2019 15:16:42 No significant change was found Electronically Signed On 08-24-2019 8:05:25 MANAGER OF GLOBAL by Pablo Deleon [email or web address] <ELECTRONICALLY SIGNED> By: Pablo Deleon MD, [facility] 08/24/19 0805 1859 58 Pablo Deleon MD, [facility] /EPI
[2019-08-28 16:25] VITALS: BP 91/58
--- NOTE | 2019-08-28 17:37 | NUR ---
ASSESSMENT CHARTED. PT ALERT AND ORIENTED. VSS. PLEASANT AND COOPERATIVE WITH CARES. WOUND CARES DRESSING COMPLETED. WOUND VAC DISCONTINUED. CONTACT ISOLATION MAINTAINED. IV ABX GIVEN. WILL CONTINUE TO MONITOR.
[2019-08-28 19:40] VITALS: BP 89/52
[2019-08-29] VITALS (7 sets, daily range): BP systolic 95–104; BP diastolic 54–70
[2019-08-29 06:05] LABS: CALCIUM 8.4 mg/dL (8.5-10.1); CREATININE 0.4 mg/dL (0.6-1.0); MAGNESIUM 1.8 mg/dL (1.8-2.4); POTASSIUM 3.6 mmol/L (3.5-5.1)
--- NOTE | 2019-08-29 08:09 | NUR ---
ASSUME CARE 1900. PT/VITALS STABLE. FLAT AFFECT NOTED. PT IS MORE WITHDRAWN BUT ANSWERS QUESTIONS APPROPRIATELY. GENERALIZED PAIN WITH OXYCODONE FOR RELIEF. POOR TOLERANCE TO ACTIVITY. ASSESSMENT AAS CHARTED. NO TEMP OR DISTRESS NOTED THROUGH NIGHT. AFIB WITH CONTROLLED RATE. ON ABX AND ID/GS CONSULTED INFECTION AND WOUND. PROGRESSING SLOWLY WITH POC. PLAN IS DEBRIDEMNENT OF SACRALWOUND Saturday. CONSENT SIGNED BY SURGEON AND FAMILY TO BE CALLED BY DR. SANTOS. WILL CONITNUE TO MONITOR AND FOLLOW WITH POC
[2019-08-30 04:00] VITALS: BP 130/83
[2019-08-30 07:40] VITALS: BP 109/80
--- NOTE | 2019-08-30 07:55 | NUR ---
ASSUME CARE 1900. PT/VITALS STABLE. INTERMITTENT PAIN NOTED. PT MOANS WITH TOUCH OR MOVEMENT. POOR TOLERANC TO ACTIVITY. PATIENTIS A/O TO SELF AND ANSWERS SOME QUESTIONS APPROPRIATELY. SACRAL WOUND CARE DONE. DRINKS WITH NO CHOKING. NEEDS ASSISTANCE WQITH CARE BUT CAN MANAGE A FEW ATIVITIES LIKE DRINING AND EATING BY SELF WITH SOME GUIDNCE. WILL CONTINUE TO MONITOR AND FOLLOW WITH POC
[2019-08-30 11:15] VITALS: BP 96/60
--- NOTE | 2019-08-30 13:18 | NUR ---
ASSUMED CARE AT SHIFT CHANGE, ALERT TO SELF, AND PATIENT VOICED NO CONCERN PATIENT IS TENDER TO TOUCH AND CAN'T TOLERATE POSITIONING, Q2 POSITOINED FOR COMFORT,SCHEDULED MEDS GIVEN WITH BREAKFAST, AND PATIENT SHOWS NO S&S OF CHOCKING. REPORT GIVEN TO TISHA FINE TO CONTINUE POC.
--- NOTE | 2019-08-30 14:00 | NUR ---
REPORT RECEIVED FROM TISHA DELGADO AT 1300. PT RESTING QUIETLY, RESP EVEN AND UNLABORED, NO DISTRESS. REPORT GIVEN TO TISHA THOMPSON AT 1400.
[2019-08-30 16:30] VITALS: BP 110/74
--- NOTE | 2019-08-30 19:34 | NUR ---
Alert, withdraw. the staff offered dressing change times, patient refused. brought dinner, the patient tolerated it well. vss, afebrile. lab reviewed.
[2019-08-30 20:31] VITALS: BP 110/60
[2019-08-31 04:11] VITALS: BP 102/70
[2019-08-31 04:55] VITALS: BP 117/75
--- NOTE | 2019-08-31 06:14 | NUR ---
PT RESTING ON AND OFF WITH Q 2 TURNS JOANN THE NOC, VSS, PRN PAIN MEDS GIVEN FOR PAIN, NPO SINCE MNOC FOR WOUND DEBRIDEMENT TODAY, RODRIGUEZ CON'T TO DRAIN DRK YELLOW URINE, WILL CON'T TO MONITOR PER PPOC.
--- NOTE | 2019-08-31 07:44 | HC ---
[facility] [place] [address] CONSULTATION Name: DUKE BROWN Room #: 214-P ADM IN M.R.#: [id number] Admission: 08/23/19 Attend Phys: Linda Mancilla MD Discharge: Date of : 48 Report #: [id number] THIS REPORT FOR: cc: Linda Mancilla MD,Linda Srinivasan,Jack Blanton MD ~ CC: Linda Mancilla DATE OF SERVICE: 08/24/2019 CHIEF COMPLAINT: Stage 4 sacral pressure ulceration. HISTORY OF PRESENT ILLNESS: This is a 68-year-old female patient with whom I am familiar from recent hospitalization. She was noted to have a large unstageable pressure ulcer and underwent surgical debridement. She has also had a previous right humerus fracture. She was admitted due to decreased level of consciousness and admitted for further medical management. I have been asked to see her with regard to wound care. PAST MEDICAL HISTORY: Significant for atrial fibrillation, previous stroke with right hemiplegia. She has a history of HIV, chronic atrial fibrillation, and diabetes mellitus. ALLERGIES: None. MEDICATIONS: Include glucagon, Tylenol, Imodium, ProAmatine, Pradaxa, baclofen, gabapentin, digoxin, Actos, Atripla, Farxiga, Dulcolax, famotidine, nystatin, bacitracin, zinc oxide. REVIEW OF SYSTEMS: Unable to be obtained due to the patient's altered mental status and inability to speak. PHYSICAL EXAMINATION: VITAL SIGNS: Include temperature 36.8, pulse 97, respiratory rate 18, blood pressure 88/64. GENERAL: This is a chronically ill-appearing female patient who appears to be in mild distress. HEENT: Head normocephalic. NECK: Demonstrates slight torticollis. LUNGS: Diminished. HEART: Regular. ABDOMEN: Soft, nontender. SKIN: Sacral region demonstrates a large sacral ulcer that is relatively clean and granulating. There is a little bit of odor and some drainage, but overall appears to be clean. NEUROLOGIC: The patient has a right hemiplegia. She is aphasic. She seems to [facility] [place] [address] [facility] Room #: 214-P [facility] IN M.R.#: [id number] Admission: 08/23/19 Attend Phys: Linda Mancilla MD Discharge: Date of : 48 Report #: [id number] have pain with repositioning in bed. LABORATORY STUDIES: Include sodium 142, potassium 3.4, chloride 104, CO2 of 28, BUN 16, creatinine 0.5, glucose is 114. Lactic acid 1.0. Troponin I is 0.36, albumin 2.5. White blood cell count 9.9 with a hemoglobin of 12.3. CLINICAL IMPRESSION: 1. Stage 4 sacral pressure ulcer, status post previous surgical debridement. 2. Type 2 diabetes mellitus. 3. Right proximal humerus fracture. 4. Sepsis with acute mental status changes. 5. Atrial fibrillation. 6. Human immunodeficiency virus. RECOMMENDATIONS: At this point in time, we will use saline moist gauze tonight and start a wound VAC again in the morning. She will need to be on low air loss mattress, q. 2 hour turning and positioning, PRAFO boots for pressure prophylaxis. Ongoing nutritional support and continuation of current medications. I do appreciate being asked to see her in consultation. <ELECTRONICALLY SIGNED> By: Jack Srinivasan MD 08/31/19 0744 [id number] Jack Srinivasan MD /nt
[2019-08-31 11:00] VITALS: BP 99/78
--- NOTE | 2019-08-31 11:41 | NUR ---
Followup: S/P I/D of sacral wound. Hx HIV, DM, CVA, expressive aphasia. Spouse not available in room, unable to speak with pt. EMR reviewed, has been eating well but decline in intake on 08/28. Taking oral supplement. Has several different supplements ordered Ensure Enlive, beneprotein and now Yasmani. Does not need all of these. BG elevated so will change to glucerna shakes bid, yasmani bid and discontinue beneprotein and ensure enlive. Wts elevated above past trends. Remains low nutrition risk.
[2019-08-31 16:30] VITALS: BP 60/31
--- NOTE | 2019-08-31 17:38 | NUR ---
Sp with [facility] liason, Dr moses and spouse tenative plan for transfer to [facility] on Sat. Encouraged spouse if planning ltc at another facility to tour and chose facility so can be evaled.
--- NOTE | 2019-08-31 17:53 | NUR ---
ASSUMED CARE OF PT AT SHIFT CHANGE. ASSESSMENTS CHARTED. MEDS GIVEN PER AUG. PT RETURNED FROM DEBRIDEMENT SURGERY AT APPROX 1100. WOUND VAC IN PLACE. NO C/O PAIN UNTIL LATER IN AFTERNOON, WHILE TURNING. TREATED WITH PO MEDS. WEARING RIGHT ARM SLING. AT BEDSIDE. WILL CONTINUE TO MONITOR AND FOLLOW POC.
[2019-08-31 19:45] VITALS: BP 154/63
[2019-09-01 02:40] VITALS: BP 142/46
--- NOTE | 2019-09-01 07:12 | NUR ---
ALERT.WILL ANSWER YES/NO FOR QUESTIONS.RIGHT SIDED WEAKNESS NOTED.SLING TO THE RIGHT ARM.ABLE TO SWALLOW CRUSHED PILLS WITH APPLE SAUCE.TURN Q2 HOURS.WOUND VAC NOTED.RODRIGUEZ TO CIERA.MONITOR SHOWS AFIB.POC CONTINUED.
[2019-09-01 08:00] VITALS: BP 79/43
[2019-09-01 12:00] VITALS: BP 68/42
[2019-09-01 14:48] VITALS: BP 159/66
--- NOTE | 2019-09-01 15:22 | NUR ---
patient accepted to [facility] with tenative dc in am. [facility] is ordering antivirals for patient and will assume finances of antiviral. Sp with spouse last evening he is aware of tenative dc to [facility]. [facility]. DR Mancilla medical staff services coordinator of [facility]. Referral sent to facility and sp with admission. They will review and aware patient transferring to LTAC first.
[2019-09-01 16:00] VITALS: BP 99/61
--- NOTE | 2019-09-01 16:07 | PATH ---
[facility] [address] [place] [address] PATHOLOGY RPT PROCEDURE Name: DUKE BROWN Room #: 214-P ADM IN M.R.#: [id number] Admission: 08/23/19 Date of : 48 Discharge: Report #: [id number] Path Case #: [id number] [facility] Accession Number: [id number] . 01 Material submitted: . sacrum - SACRAL WOUND . 01 Clinical history: . Sacral decubitus ulcer . 02 Diagnosis: Skin and subcutaneous tissue, sacral wound, debridement: - Ulceration along with fibrinoid degeneration as well as gangrenous necrosis, consistent with decubitus ulcer. (IUV:yoel; 09/01/2019) QMS 09/01/2019 1428 Local . 02 Electronically signed: . Naomi Gonzalez MD, Pathologist NPI- [id number] . 01 Gross description: . The specimen is received in formalin, labeled "[facility] Sandra, sacral wound". Received is an irregular excision of pale sal to mello-sal, necrotic-appearing skin with attached underlying soft tissue measuring 10.7 x 4.1 x 3.5 cm in greatest dimensions. The specimen is submitted representatively in cassette A1. (CAA; 08/31/2019) QA/QA 08/31/2019 1554 Local . 02 Pathologist provided ICD-10: L89.159 . 02 CPT . 503608 Specimen Comment: A courtesy copy of this report has been sent to [phone] Specimen Comment: Report sent to Performed at: [address], [place], [place] [id number] MD Aldo Brush MD Phone: [phone] Performed at: [address] [id number] MD Naomi Gonzalez MD Phone: [phone]
--- NOTE | 2019-09-01 16:47 | NUR ---
FAXED REFERRAL TO [facility] RECEIVED CONFIRMATION AND LEFT MSG WITH LINCOLN IN ADM. DP TO FOLLOW.
--- NOTE | 2019-09-01 18:26 | NUR ---
ASSUMED CARE PT SHIFT CHANGE. ASSESSMENTS CHARTED. MEDS GIVEN PER AUG. PT AWAKE, ORIENTD TO PERSON, NON VERBAL, COMMUNICATION EFFECTIVE WITH YES/NO QUESTIONS. PT DENIES PAIN EXCEPT FOR WHEN MOVED. APPETITE ADEQUATE THIS SHIFT. VISITED WITH PT. VSS EXCEPT FOR LOW BP DURING SHIFT. CALL PLACED TO PHYSICIAN. ORDERS RECEIVIED. BP NOW STABLE. WOUND VAC REMAINS IN PLACE ON SACRAL AREA. DRAINING APPROPRIATELY. PT CURRENTLY RESTING IN BED IN NO APPARENT DISTRESS. PLAN IS FOR PT TO DC TO LTAC. PT AND AWARE. WILL CONTINUE TO MONITOR AND ASSESS NEEDS.
[2019-09-01 20:43] VITALS: BP 161/68
[2019-09-02 01:22] VITALS: BP 158/60
[2019-09-02 05:00] VITALS: BP 158/58
--- NOTE | 2019-09-02 05:28 | NUR ---
PT ALERT BUT HAS EXPRESSIVE APHASIA. C/O COCCYX WOUND PAIN EFFECTIVELY CONTROLLED VIA PRN PAIN MEDS. WOUND VAC IN PLACE FUNCTIONAL. TURN REPO Q2H. BEDRIDDEN. ACHS. RODRIGUEZ CATHETER IN PLACE. R ARM SLING. RIGHT SIDE WEAKNESS R/T CVA. MAX ASSIST WITH CARE. MEDS WHOLE WITH THIN LIQUID WITHOUT ANY DIFFICULTIES
[2019-09-02 05:57] LABS: HEMATOCRIT 31.4 % (37.0-47.0); HEMOGLOBIN 9.9 gm/dL (12.0-15.0); MCH 29.8 pg (26.0-34.0); MCHC 31.7 g/dL (28.0-37.0); MCV 94.1 fL (80.0-100.0); RBC 3.33 mil/uL (4.20-5.00); RDW 15.6 % (10.5-14.5); WBC 8.6 thou/uL (4.0-11.0)
[2019-09-02 06:07] LABS: CREATININE 0.3 mg/dL (0.6-1.0); POTASSIUM 3.4 mmol/L (3.5-5.1)
[2019-09-02 07:30] VITALS: BP 82/50
[2019-09-02] MEDS ORDERED: MEROPENEM1 GM IV (11:05)
[2019-09-02] MEDS ORDERED: VANCOMYCIN1 GM/2002 IV (11:07)
[2019-09-02] MEDS ORDERED: HUMALOG MI100 UNIT/6 SUBQ (11:09)
[2019-09-02 11:30] VITALS: BP 106/70
--- NOTE | 2019-09-02 15:05 | NUR ---
WOUND CARE DISCHARGE NOTE; ROUNDING WITH DR MENDIOLA AND RANDALL PRODUCTION SUPPORT SPECIALIST. THE SACRAL WOUND HAS BEEFY RED STABLE TISSUE IN THE WOUND BED. THE PRIMATRIX SKIN PRODUCT IS COMPLETLY INTACT AND HEALTHY. NO S/S OF INFECTION. A SALINE MOIST GAUZE DRESSING WAS GENTLY PACKED INTO THE WOUND,COVERED WITH ABD AND SECURED WITH TAPE. REPORT GIVEN TO TISHA
--- NOTE | 2019-09-02 15:05 | NUR ---
patient to dc to [facility] today at 1630 via [facility]. Chart copied and transfer forms faxed and rec. Sp with spouse to alert of dc. alerted referral to [facility] for post care once stable from [facility]. Updated [facility].
--- NOTE | 2019-09-02 16:55 | NUR ---
ASSUMED CARE OF PT AT SHIFT CHANGE. ASSESSMENTS CHARTED.MEDS GIVEN PER AUG. PT ALERT TO SELF. EXPRESSIVE APHASIA. NO C/O PAIN UNTIL LATE IN AFTERNOON. GAVE PO PAIN MED IMMEDIATLEY PRIOR TO TRANSPORT TO LTAC FACILITY. DISCHARGE ORDERS COMPETE. TELE AND ONE IV DC'D.
== END 2019-09-02 17:32 | DRG 853 ==
LOC: ER 17:32 → 2N 19:21 → EROBS 19:21 → 2N 23:15
PROVIDERS: Emergency Medicine; Nurse Practitioner; Specialist; ADMIT Internal Medicine
PROC: 0QB10ZZ Excision of Sacrum, Open Approach (ICD-10-PCS; principal; 2019-08-31)
PROC: 0QBS0ZZ Excision of Coccyx, Open Approach (ICD-10-PCS; 2019-08-31)
DX: A41.9 Sepsis, unspecified organism (principal); L89.154 Pressure ulcer of sacral region, stage 4; I21.4 Non-ST elevation (NSTEMI) myocardial infarction; E43 Unspecified severe protein-calorie malnutrition; S42.291A Other displaced fracture of upper end of right humerus, initial encounter for closed fracture; N39.0 Urinary tract infection, site not specified; I69.351 Hemiplegia and hemiparesis following cerebral infarction affecting right dominant side; I48.21 Permanent atrial fibrillation; M46.28 Osteomyelitis of vertebra, sacral and sacrococcygeal region; I95.9 Hypotension, unspecified; E11.40 Type 2 diabetes mellitus with diabetic neuropathy, unspecified; I95.89 Other hypotension; F32.9 Major depressive disorder, single episode, unspecified; D64.9 Anemia, unspecified; E78.5 Hyperlipidemia, unspecified; Z21 Asymptomatic human immunodeficiency virus [HIV] infection status; X58.XXXA Exposure to other specified factors, initial encounter; K21.9 Gastro-esophageal reflux disease without esophagitis; Z79.891 Long term (current) use of opiate analgesic; Z79.899 Other long term (current) drug therapy; Y93.89 Activity, other specified; Y92.89 Other specified places as the place of occurrence of the external cause; Y99.8 Other external cause status; Z79.01 Long term (current) use of anticoagulants; Z86.718 Personal history of other venous thrombosis and embolism; Z90.49 Acquired absence of other specified parts of digestive tract; Z68.30 Body mass index [BMI] 30.0-30.9, adult
CPT/HCPCS: 10081; 50010; 50101; 50386; 50403; 50643; 51412; 57119; 57120; 57141; 57192; 62110; 62900; 70005

== ENCOUNTER 2019-09-08 19:40 | Inpatient (IN) | payer OTHER ==
[~2019-09-08] VITALS: Ht 175.3 cm; Wt 75.3 kg
--- NOTE | ~2019-09-08 | EMS ---
[address] [address] EMS Patient Care Report Name: DUKE BROWN Room #: REG KACY Schmidt#: [id number] Admission: 09/08/19 Attend Phys: Discharge: Date of : 48 Report #: [id number] THIS REPORT FOR: //name// Report Transmitted: 09/08/2019 20:22 EMS Care Summary [facility] MED-ACT Incident [id number] @ 09/08/2019 18:57 Incident Location [facility] [address] [place] [address] Patient DUKE BROWN Female, 68 Years 1950 Patient Address [address] [place] [address] Patient History Other,Stroke/CVA,Human Immunodeficiency Virus Disease (HIV/AIDS), Patient Allergies No known allergies, Patient Medications Pioglitazone Hydrochloride, Vancomycin, Atorvastatin, Famotidine, Insulin, Digoxin, Midodrine, Chief Complaint None per pt, decreased LOC per staff Disposition Transported No Lights/Elizabeth Dispatch Reason Unconscious/Fainting Transported To [facility] Narrative Arrived on scene to find a 68 y/o female lying supine on bed located in room [address] [address] EMS Patient Care Report Name: DUKE BROWN Room #: REG KACY Schmidt#: [id number] Admission: 09/08/19 Attend Phys: Discharge: Date of : 48 Report #: [id number] 424 of skilled NH. Pt presented unresponsive, with ABC's intact, being assessed by S47. Staff reports to EMS that this pt, who normally presents with decreased LOC, has developed further deterioration of said LOC, to the point of being unresponsive. Staff reports to EMS that this pt, who has a hx of a CVA that left her with right sided deficits, is usually able to moan and groan and can squeeze with her left hand on command. Staff reports that the pt is unable to do so today. Staff reports that the last time the pt was seen per her normal was at approximately 1200 this afternoon. Staff denied any other noted medical complaints. Pt was a poor historian due to hx described above. Pt had intermittent fixed right lateral gaze and nystagmus, which staff reports is normal for her. Pt had periods where she would open her eyes and track EMS personnel but was unable to follow commands such as squeezing or grabbing with her left hand as staff reports she is able to do normally. Pt's GCS was 6 and maintained through out care. Upon assessment and 12 lead acquisition, a STEMI was flagged by Zoll monitor interpretation. EMS did not find the interpretation accurate but transmitted it to [facility] so ED physician could evaluate and activate if needed. Pt was transported to ED for further eval nd tx. See flow chart for trends, interventions and times. Initial Vitals @19:23P: 126,SpO2: 82,VA Suspected: false @19:27P: 100,SpO2: 95,VA Suspected: false @19:20P: 136,R: 22,BP: 218/118, @19:33P: 128,R: 20,BP: 200/130,Pain: 0/10,GCS: 6,SpO2: 95,Revised Trauma: 10, @19:22P: 136,SpO2: 86,VA Suspected: false @19:07P: 114,R: 22,BP: 200/112,Pain: 0/10,GCS: 6,Temp: 98.8F,Glucose: 181,SpO2: 96,Revised Trauma: 10, Assessments @19:07MENTAL:Unresponsive,SKIN:HEENT:Eyes: Right: Other,Eyes: Left: Other,Eyes: Left Pupil: 4-mm,Eyes: Right Pupil: 4-mm,Head/Face: No Abnormalities,Neck/Airway: No Abnormalities,LUNG SOUNDS:General: No Abnormalities,ABDOMEN:General: No Abnormalities,PELVIS//GI:EXTREMITIES:PULSE:NEURO:Other, Impression Altered Mental Status Procedures @19:2712-Lead ECGResponse: UnchangedSucceeded@19:2212-Lead ECGResponse: UnchangedSucceeded@19:2312-Lead ECGResponse: UnchangedSucceeded@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, cc Site: Antecubital-Left, SUBSURFACE AUGMENTEE ELINT OPERATOR,Oxygen FlowRate: 2 Device: Nasal Cannula (NC) Response: Improved 18:56,Call Received 18:56,Psap Call 18:57,Dispatched 18:57,En Route 19:03,On Scene 19:06,At Patient 19:07,BP: 200/112 M,PULSE: 114,RR: 22 R,SPO2: 96 Ox,ETCO2: ,B,PAIN: 0,GCS: 6, 19:15,Oxygen FlowRate: 2 Device: Nasal Cannula (NC) Response: UnchangedSucceeded, 19:20,BP: 218/118 M,PULSE: 136,RR: 22 R,SPO2: Ox,ETCO2: ,BG: ,PAIN: ,GCS: , 19:22,12-Lead ECG,Response: UnchangedSucceeded, 19:22,BP: / M,PULSE: 136,RR: R,SPO2: 86 Ox,ETCO2: ,BG: ,PAIN: ,GCS: , 19:23,12-Lead ECG,Response: UnchangedSucceeded, 19:23,BP: / M,PULSE: 126,RR: R,SPO2: 82 Ox,ETCO2: ,BG: ,PAIN: ,GCS: , 19:23,Depart Scene 19:27,12-Lead ECG,Response: UnchangedSucceeded, 19:27,BP: / M,PULSE: 100,RR: R,SPO2: 95 Ox,ETCO2: ,BG: ,PAIN: ,GCS: , 19:33,BP: 200/130 M,PULSE: 128,RR: 20 R,SPO2: 95 Ox,ETCO2: ,BG: ,PAIN: 0,GCS: 6, 19:36,At Destination 19:59,Call Closed Disclaimer v1.1 Copyright 2020 [employer] This EMS Care Summary contains data elements from the applicable legal record (which may be displayed differently). It is designed to provide pertinent information for the following purposes: continuity of care, clinical quality, and state data reporting. The complete legal record is available to ED staff and administrators of the receiving hospital in [facility]'s Patient Tracker. All data is provided "as is."
--- NOTE | ~2019-09-08 | D ---
[facility] [place] [address] DISCHARGE SUMMARY Name: DUKE BROWN Room #: 445-P [facility] IN M.R.#: [id number] Admission: 09/09/19 Attend Phys: Alejandro El MD Discharge: 09/12/19 Date of : 48 Report #: [id number] THIS REPORT FOR: cc: [facility] - Clinic physician unknown [facility] - Clinic physician unknown Alejandro El MD ~ THIS REPORT FOR: //name// CC: Alejandro GARCIA unknown DATE OF SERVICE: 09/12/2019 FINAL DIAGNOSES: 1. Acute right middle cerebral artery stroke. 2. Acute left hemiparesis. 3. Acute metabolic encephalopathy due to the above. 4. Bacteremia. 5. Multiple wounds. 6. Hypertension. 7. Atrial fibrillation. 8. Diabetes type 2 with diabetic neuropathy. HOSPITAL COURSE: The patient was transferred from the LTAC facility for evaluation of altered mental status. Imaging reports showed an acute right middle cerebral artery stroke and a very large distribution during the course of her stay. Her neurologic status did not improve and she was not responsive for entire hospital stay. She has a known history of multiple wounds and related bacteremia and was receiving IV antibiotics, which were continued. One blood culture here grew Staphylococcus hominis and a second blood culture was pending and negative at the time of discharge and urine culture was negative. Her family elected DNR status at the time of admission. I spoke to her again and given no neurologic improvement, we shifted our focus to palliative hospice care. Supportive measures were entered only including morphine for air hunger or signs or symptoms clinically of uncomfortable distress. The social work service assisted in facilitating a move to inpatient hospice. DISPOSITION: She is being transferred to [facility] for terminal care of a recent large stroke with no improvement of her neurologic condition and multiple other medical comorbidities. By: [phone] Alejandro El MD /nt
[~2019-09-08 19:40] MED LIST changes: +ACID CONTROLLER20 MG PO; +BACITRACIN ZIN1 EAC1 TOP; +DESITIN57 GM TOP; +DULCOLAX STOOL100 M1 PO; +HUMALOG MI100 UNIT/6 SUBQ; +MEROPENEM1 GM IV; +NYSTATIN1 EAC5 TOP; +VANCOMYCIN1 GM/2002 IV; +VITAMIN C500 M1 PO
[2019-09-08 19:41] VITALS: BP 210/114
[2019-09-08 20:11] LABS: ABSOLUTE NEUTROPHILS 7.6 thou/uL (1.4-8.2); EOSINOPHILS 0.8 % (0.0-3.0); HEMATOCRIT 33.5 % (37.0-47.0); HEMOGLOBIN 10.6 gm/dL (12.0-15.0); LYMPHOCYTES 11.3 % (24.0-44.0); MCH 29.3 pg (26.0-34.0); MCHC 31.6 g/dL (28.0-37.0); MCV 92.6 fL (80.0-100.0); MONOCYTES 8.1 % (1.0-8.0); PLATELET COUNT 342 thou/uL (150-400); POLYS 78.8 % (36.0-66.0); RBC 3.61 mil/uL (4.20-5.00); RDW 16.3 % (10.5-14.5); WBC 9.7 thou/uL (4.0-11.0)
[2019-09-08 20:19] LABS: BE(vivo) 1.8 mmol/L (-2 to +3); HCO3 24.3 mmol/L (22.0-26.0); PCO2 31.1 mmHg (35.0-45.0); PO2 82.1 mmHg (80.0-100.0); sO2 97.1 % (92.0-98.0)
[2019-09-08 20:25] LABS: CALCIUM 9.1 mg/dL (8.5-10.1); CREATININE 0.4 mg/dL (0.6-1.0)
[2019-09-08 20:26] LABS: POTASSIUM 2.8 mmol/L (3.5-5.1)
[2019-09-08 21:34] LABS: URINE BILIRUBIN NEGATIVE (Negative); URINE BLOOD 3+ (Negative); URINE CLARITY CLOUDY; URINE COLOR YELLOW; URINE GLUCOSE-RANDOM* 1+ (Negative); URINE KETONES 2+ (Negative); URINE LEUKOCYTES-REFLEX NEGATIVE (Negative); URINE NITRITE-REFLEX NEGATIVE (Negative); URINE PROTEIN (DIPSTICK) 2+ (Negative); URINE SPECIFIC GRAVITY 1.025 (1.005-1.035); URINE UROBILINOGEN 0.2 E.U./dl (0.2-1.0)
[2019-09-08 21:51] LABS: YEAST-REFLEX Present (None Seen)
[2019-09-08 21:52] LABS: BACTERIA-REFLEX 1-9 Few /HPF (None Seen); CASTS None Seen /LPF (None Seen); CRYSTALS None Seen /LPF (None Seen); SQUAMOUS 0-3 Few /LPF (0-3); URINE RBC >20 Many /HPF (0-2)
[2019-09-08 21:53] LABS: URINE WBC-REFLEX 0-5 Rare /HPF (0-5)
[2019-09-08 23:38] LABS: APTT 23.4 Seconds (24.5-32.8); INR 1.1; PROTIME 10.8 Seconds (9.3-11.4)
[2019-09-09] VITALS (8 sets, daily range): BP systolic 158–229; BP diastolic 42–89
[2019-09-09 15:37] LABS: CALCIUM 8.7 mg/dL (8.5-10.1); CREATININE 0.3 mg/dL (0.6-1.0); POTASSIUM 4.4 mmol/L (3.5-5.1)
[2019-09-10 04:30] VITALS: BP 227/54
--- NOTE | 2019-09-10 07:41 | EKG ---
[facility] [place] [address] ELECTROCARDIOGRAM REPORT Name: DUKE BROWN Room #: 445-P ADM IN M.R.#: [id number] Admission: 09/09/19 Attend Phys: Alejandro El MD Discharge: Date of : 48 Report #: [id number] THIS REPORT FOR: cc: [facility] - Clinic physician unknown [facility] - Clinic physician unknown Pablo Deleon MD [facility] ~ THIS REPORT FOR: //name// [facility] ED Test Date: 2019-09-08 Test Time: 19:41:33 Pat Name: DUKE BROWN Department: Room: [facility] Gender: F 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 : 1950 Requested By: Order Number: [id number] MD: Pablo Deleon Measurements Intervals [place] Rate: 124 P: FL: QRS: 36 QRSD: 70 T: 226 QT: 299 QTc: 430 Interpretive Statements Atrial fibrillation LVH with secondary repolarization abnormality Anterior Q waves, possibly due to LVH ST depression, consider ischemia, diffuse lds Compared to ECG 08/23/2019 18:59:14 Heart rate has increased Electronically Signed On 09-10-2019 7:40:34 CDT by Pablo Deleon [email or web address] <ELECTRONICALLY SIGNED> By: Pablo Deleon MD, [facility] 09/10/19 0740 40 40 Pablo Deleon MD, [facility] /EPI
[2019-09-10 08:06] VITALS: BP 223/71
--- NOTE | 2019-09-10 08:55 | H ---
[facility] [place] [address] HISTORY AND PHYSICAL Name: DUKE BROWN Room #: 445-P ADM IN M.R.#: [id number] Admission: 09/09/19 Attend Phys: Alejandro El MD Discharge: Date of : 48 Report #: [id number] THIS REPORT FOR: cc: [facility] - Clinic physician unknown [facility] - Clinic physician unknown Alejandro El MD ~ CC: Alejandro GARCIA unknown DATE OF SERVICE: 09/09/2019 CHIEF COMPLAINT: Altered mental status. HISTORY OF PRESENT ILLNESS: The patient is a 68-year-old female, sent from [facility] facility for evaluation of altered mental status. She had been receiving IV antibiotics for wound care and osteomyelitis when the nursing staff noted she had a change in her mentation. Nursing reported that she was unresponsive, which was a change from her baseline. She was sent to the Emergency Room and CT and MRI revealed an acute right middle cerebral artery stroke with a very large distribution. She has had previous embolic stroke in the past as well. PAST MEDICAL HISTORY: Cerebrovascular disease with prior history of stroke, atrial fibrillation, chronic anticoagulation. There is a history of peripheral artery disease with clot. There is report of an IVC filter 8 years ago. She has a history of HIV, neuropathy, expressive aphasia, hypertension, AFib, anemia, depression, dyslipidemia, GERD, diabetes type 2, insulin requiring. PAST SURGICAL HISTORY: Unknown. FAMILY HISTORY: Unknown. SOCIAL HISTORY: Unknown. ALLERGIES: Unknown. MEDICATIONS: Meropenem, vancomycin, Humalog, oxycodone, Lipitor, Pradaxa, midodrine, digoxin, Actos, vitamin D, Atripla tablet, Pepcid, vitamin C. REVIEW OF SYSTEMS: She is unable to give review. OBJECTIVE: VITAL SIGNS: Temperature 37.4, pulse 95, respirations 18, blood pressure 177/48. GENERAL: She is nonresponsive with what appears to be right neglect and left flexion of the head at the neck. [facility] [address] [place] [address] HISTORY AND PHYSICAL Name: DUKE BROWN Room #: 445-P [facility] IN M.R.#: [id number] Admission: 09/09/19 Attend Phys: Alejandro El MD Discharge: Date of : 48 Report #: [id number] HEAD AND NECK: Otherwise, unremarkable. LUNGS: Clear. HEART: Regular. ABDOMEN: Soft, normoactive bowel sounds. EXTREMITIES: No edema. NEUROLOGIC: She cannot cooperate with any neuro exam. No movement seen of the right side. LABORATORY DATA: CT and MRI reviewed. ASSESSMENT: 1. Acute large right middle cerebral artery stroke. 2. Cerebrovascular disease. 3. Atrial fibrillation. 4. Chronic anticoagulation. 5. Human immunodeficiency virus. 6. Diabetes type 2. 7. Peripheral artery disease. 8. Multiple skin wounds. PLAN: For now, we will plan symptomatic and supportive treatment. I will continue her antibiotics for now. Wound care team has been consulted. Neurologically, this appears to be a devastating stroke, remains to be seen whether she will wake up from the stroke. The MRI suggested there could be some petechial signs of hemorrhage, so no anticoagulation or DVT prophylaxis of Lovenox at this time. If there is no improvement in perhaps a 24-hour period, we will have a discussion of hospice care with the family, very poor prognosis. <ELECTRONICALLY SIGNED> By: Alejandro El MD 09/10/19 0855 [id number] [id number] Alejandro El MD /nt
[2019-09-10 17:14] VITALS: BP 259/98
[2019-09-10 17:15] VITALS: BP 257/69
[2019-09-11 08:06] VITALS: BP 104/58
[2019-09-11 15:00] VITALS: BP 180/107
--- NOTE | 2019-09-11 15:26 | HC ---
[facility] [place] [address] CONSULTATION Name: DUKE BROWN Room #: 445-P ADM IN M.R.#: [id number] Admission: 09/09/19 Attend Phys: Alejandro El MD Discharge: Date of : 48 Report #: [id number] THIS REPORT FOR: cc: [facility] - Clinic physician unknown [facility] - Clinic physician unknown Jack Srinivasan MD ~ CC: Alejandro GARCIA unknown DATE OF SERVICE: 09/09/2019 HISTORY OF PRESENT ILLNESS: This is a 68-year-old female patient with whom I am familiar from previous hospitalization. She has had a stage 4 sacral pressure ulcer, undergone recent debridement. The patient was admitted to the hospital with decreasing mental status and was noted to have a significant new MCA cerebrovascular accident. I have been asked to see her with regard to wound care. The patient can provide no information about herself. PAST MEDICAL HISTORY: Positive for diabetes, DVT, gallstones, status post cholecystectomy, [place] filter, HIV, expressive aphasia, previous cerebrovascular accident, anemia, AFib, depression, hyperlipidemia, GERD. MEDICATIONS: Include meropenem, vancomycin, insulin, oxycodone, Pradaxa, Lipitor, Lanoxin, Atripla. ALLERGIES: None. SOCIAL HISTORY: Negative for alcohol or tobacco use currently. FAMILY HISTORY: Noncontributory. REVIEW OF SYSTEMS: Unobtainable due to the patient's diminished level of consciousness. PHYSICAL EXAMINATION: VITAL SIGNS: At this time include temperature 37.5, pulse rate 119, respiratory rate 20, blood pressure 167/46. GENERAL: This is a chronically ill-appearing female patient who appears to be minimally responsive. HEENT: Head is normocephalic. NECK: Supple. LUNGS: Diminished. HEART: Regular rate and rhythm. ABDOMEN: Soft, nontender. Sacral region demonstrates a fairly large sacral ulcer with a mix of granulation and fibrin. No obvious odor. Does not appear to be overtly infected. [facility] [address] [place] [address] CONSULTATION Name: DUKE BROWN Room #: 445-P [facility] IN [facility].#: [id number] Admission: 09/09/19 Attend Phys: Alejandro El MD Discharge: Date of : 48 Report #: [id number] EXTREMITIES: Shows some contractures. There appears to be a stage 2 pressure ulcer with a blister on the left medial heel that is new. NEUROLOGIC: The patient has diminished level of responsiveness, is not cooperative for examination. LABORATORY DATA: White blood cell count 9.7, hemoglobin 10.6. Sodium 138, potassium 4.4, chloride 101, CO2 of 25, BUN 6, creatinine 0.3. CLINICAL IMPRESSION: 1. Cerebrovascular accident with decreased level of consciousness. 2. Stage 4 sacral pressure ulcer. 3. Stage 2 pressure ulcer, left medial heel. 4. Type 2 diabetes mellitus. 5. Right proximal humerus fracture. 6. Sepsis with acute mental status changes versus cerebrovascular accident. 7. Atrial fibrillation. 8. Severe protein-calorie malnutrition. RECOMMENDATIONS: At this point in time, we will recommend Dakin's moist gauze to the sacral region changed daily and p.r.n. We will consider a wound VAC depending on how her overall status goes. We will recommend Betadine to the left heel, PRAFO boots at all times. She will need a low air loss mattress, every 2 hour turning and positioning and ongoing nutritional support, continuation of current medications. I appreciate being asked to see her in consultation. We will follow her here in the hospital. <ELECTRONICALLY SIGNED> By: Jack Srinivasan MD 09/11/19 1526 [id number] [id number] Jack Srinivasan MD /nt
[2019-09-11 19:20] VITALS: BP 210/56
[2019-09-11 22:02] VITALS: BP 190/49
[2019-09-12 04:00] VITALS: BP 207/58
[2019-09-12] MEDS ORDERED: MSL20MG/ML SUBLING (08:11)
[2019-09-12] MEDS ORDERED: MORPHINE SU4 MG/1 M1 IV PUSH (08:11)
[2019-09-12 10:25] VITALS: BP 185/86
== END 2019-09-12 13:50 | disposition hospice, home (50) | DRG 871 ==
LOC: ER 19:40 → 4S 09-09 00:04 → EROBS 09-09 00:04 → 4S 09-09 02:25
PROVIDERS: Emergency Medicine; ADMIT Internal Medicine Geriatric Medicine
DX: A41.9 Sepsis, unspecified organism (principal); L89.154 Pressure ulcer of sacral region, stage 4; E43 Unspecified severe protein-calorie malnutrition; S42.201A Unspecified fracture of upper end of right humerus, initial encounter for closed fracture; G81.94 Hemiplegia, unspecified affecting left nondominant side; I48.91 Unspecified atrial fibrillation; F32.9 Major depressive disorder, single episode, unspecified; E78.5 Hyperlipidemia, unspecified; K21.9 Gastro-esophageal reflux disease without esophagitis; L89.622 Pressure ulcer of left heel, stage 2; Z66 Do not resuscitate; E11.51 Type 2 diabetes mellitus with diabetic peripheral angiopathy without gangrene; Z51.5 Encounter for palliative care; Z79.4 Long term (current) use of insulin; Z86.73 Personal history of transient ischemic attack (TIA), and cerebral infarction without residual deficits; Z86.718 Personal history of other venous thrombosis and embolism; Z90.49 Acquired absence of other specified parts of digestive tract
CPT/HCPCS: 10195